=== PATIENT | male | born 1970 | race Caucasian/White ===

== ENCOUNTER 2019-08-24 09:41 | Inpatient (IN) | payer OTHER, MEDICAID, SELFPAY ==
[2019-08-24] VITALS (15 sets, daily range): BP systolic 121–153; BP diastolic 75–97; PULSE 78–95; RESP 14–21; TEMP 36.2–36.7; O2SAT 65–100
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
--- NOTE | ~2019-08-24 | US_ITS ---
EXAMINATION: US abdomen complete DATE: 08/26/2019 08:30 INDICATION: Abnormal liver function tests. TECHNIQUE: Multiple grayscale and Doppler ultrasound images of the abdomen were obtained. COMPARISON: CT 08/24/2019 FINDINGS: Abdominal aorta is normal in caliber. Inferior vena cava is normal. The visualized portions of the head and body of the pancreas are normal. There is diffuse hepatic steatosis. There is normal flow in main portal vein. The gallbladder is normal in size. No gallstones or gallbladder wall thick ening. There was no sonographic Terrell sign. The common duct is normal and measures 3 mm. The kidneys are normal in size. The spleen is normal in size. IMPRESSION: 1. Diffuse hepatic steatosis. Reviewed, dictated and finalized at location D. [facility]
--- NOTE | ~2019-08-24 | CT_ITS ---
EXAMINATION: CT chest abdomen pelvis w con DATE: 08/24/2019 12:51 INDICATION: Hemoptysis. Cough. Chest pain. Intermittent vomiting, constipation, diarrhea. Elevated li arabella enzymes. TECHNIQUE: Computed tomography (CT) of the chest, abdomen, and pelvis was performed with 100 cc Omnip aque 350 intravenous contrast. Automated exposure control and iterative reconstruction technique were employed. Exam dose: 670.10 mGy-cm total exam DLP. COMPARISON: 08/24/2019 2 view chest FINDINGS: CHEST CT: Normal heart size. No pericardial or pleural effusion. No hilar or mediastinal mass lesion or lymphad enopathy. No thoracic aortic aneurysm or dissection. Minimal dependent atelectasis of the lungs. No pulmonary infiltrate or consolidation or suspicious pu lmonary mass lesion. ABDOMEN/PELVIS CT: There is diffuse hepatic steatosis. No hepatic, splenic, pancreatic, and adrenal or renal space-occup romy mass lesion is detected. Normal caliber of the abdominal aorta. No intraperitoneal or retroperit edwards or pelvic mass lesion or adenopathy or ascites. No urinary tract calculus or hydroureteronephro sis. Mild prostate enlargement and calcification. The urinary bladder is distended but otherwise unre markable. There are occasional colonic diverticula; no CT evidence of diverticulitis. Normal appendix. Mild degenerative changes of the thoracic and lumbar spine, including moderate degenerative disease a t L4-5 and particular. IMPRESSION: Hepatic steatosis Mild colonic diverticulosis Reviewed, dictated and finalized at Location A. Reviewed, dictated and finalized at location A. [employer]
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
--- NOTE | 2019-08-24 10:10 | ECG_ITS ---
Measurements Intervals [place] Rate: 95 P: 21 NM: 157 QRS: 3 QRSD: 86 T: 30 QT: 341 QTc: 429 Interpretive Statements SINUS RHYTHM BASELINE ARTIFACT- I, II, AVR, AVL, AVF BORDERLINE ECG Electronically Signed On 08-24-2019 10:23:20 PRACTICE ARCHITECT by Venu Sow D.O.
[2019-08-24 10:32] LABS: Basophils Absolute Auto 0.1 K/mm3 (0.0-0.1); Eosinophils Absolute Auto 0.2 K/mm3 (0-0.3); Hematocrit 43.2 % (42.0-52.0); Immature Granulocyte Absolute 0.03 K/mm3 (0.00-0.031); Immature Granulocyte Percent A 0.5 % (0-0.5); Lymphocytes Absolute Auto 1.33 K/mm3 (0.9-3.2); Lymphocytes Percent Auto 22.1 % (18.3-44.2); Mean Corpuscular HGB Conc 34.7 g/dl (32-36); Mean Corpuscular Hemoglobin 31.5 pg (26-34); Mean Corpuscular Volume 90.8 fl (80-100); Mean Platelet Volume 10.6 fl (7.4-10.4); Monocytes Absolute Auto 0.7 K/mm3 (0.1-0.6); Monocytes Percent Auto 11.3 % (2.6-8.5); Neutrophils Absolute Auto 3.8 K/mm3 (1.3-6.7); Neutrophils Percent Auto 62.1 % (45.5-73.1); Platelet Count Result 297 k/mm3 (150-375); Red Blood Count 4.76 M/mm3 (4.6-6.20)
[2019-08-24 10:42] LABS: Albumin Level 4.5 g/dL (3.5-5.1); Alkaline Phosphatase 78 U/L (38-126); Bilirubin,Total 0.3 mg/dL (0.2-1.3); Blood Urea Nitrogen 13 mg/dL (9-20); Calcium 9.2 mg/dL (8.4-10.2); Carbon Dioxide 23 mmol/L (22-30); Chloride 101 mmol/L (98-107); Estimated Glomerular Filt Rate > 60; Glucose 78 mg/dL (75-110); Potassium 4.4 mmol/L (3.4-5.0); Sodium 136 mmol/L (137-145)
[2019-08-24 10:45] LABS: NT Pro B Type Natriuretic Pept 29 PG/ML (5-100)
[2019-08-24 10:54] LABS: Alveolar/Arterial O2 Gradient 31.8 mmHg; Base Excess ABG -2.1 mEq/l (+/-2.0); Fractional Inspired Oxygen 21 %; HCO3 ABG 21.1 mEq/l (22.0-26.0); Oxygen Content ABG 20.1 %vol (16.0-22.0); Oxygen Saturation ABG 96.2 % (95.0-100.0); PO2 ABG 79.6 mmHg (80.0-100.0); PO2 FiO2 Ratio Arterial Blood 3.79 %; Total Hemoglobin 15.5 g/dL (12.0-18.0); pH ABG 7.436 (7.350-7.450)
[2019-08-24 10:55] LABS: Alanine Aminotransferase 1024 U/L (4-50); Aspartate Amino Transferase 769 U/L (17-59)
[2019-08-24 10:55] LABS: Device ROOM AIR; Site Drawn RIGHT BRACHIAL
[2019-08-24 12:36] LABS: Lipase 118 U/L (23-300)
[2019-08-24 14:23] LABS: Hepatitis B Surface Antigen Negative (Negative)
[2019-08-24 14:29] LABS: HAV RESULT Negative (Negative); Hepatitis B Core IgM Result Negative (Negative)
[2019-08-24 14:45] LABS: Hepatitis C Virus Antibody Reactive (Negative)
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
[2019-08-24] MEDS: ALPRAZOLAM 0.25 MG TABLET 0.5 MG PO (16:51)
[2019-08-24] MEDS: LACTATED RINGERS 1,000 ML 125 ML IV CONT (17:47)
--- NOTE | 2019-08-24 18:10 | PC.NURSE ---
Patient arrived from ER @1700
[2019-08-24 20:16] LABS: INR 0.9; Prothrombin Time 11.6 Seconds (11.1-14.7)
[2019-08-24 20:17] LABS: Partial Thromboplastin Time 21.8 SECONDS (22.3-36.8)
[2019-08-24 20:18] LABS: Acetaminophen < 10 ug/mL (10-30)
[2019-08-24] MEDS: LORATADINE 10 MG TABLET PO (21:11)
[2019-08-25] MEDS: ALPRAZOLAM 0.5 MG TABLET PO ×4 (00:12→21:48)
[2019-08-25] MEDS: LACTATED RINGERS 1,000 ML 80 ML IV CONT ×2 (04:33→17:01)
[2019-08-25 06:00] VITALS: BP 128/82; PULSE 89; RESP 18; TEMP 36.5; O2SAT 98
[2019-08-25 06:27] LABS: Basophils Absolute Auto 0.1 K/mm3 (0.0-0.1); Eosinophils Absolute Auto 0.4 K/mm3 (0-0.3); Eosinophils Percent Auto 6.8 % (0-4.4); Hematocrit 41.9 % (42.0-52.0); Hemoglobin 14.3 g/dL (14.0-18.0); Immature Granulocyte Absolute 0.02 K/mm3 (0.00-0.031); Immature Granulocyte Percent A 0.4 % (0-0.5); Lymphocytes Percent Auto 23.3 % (18.3-44.2); Mean Corpuscular HGB Conc 34.1 g/dl (32-36); Mean Corpuscular Hemoglobin 31.4 pg (26-34); Mean Corpuscular Volume 91.9 fl (80-100); Mean Platelet Volume 10.6 fl (7.4-10.4); Monocytes Absolute Auto 0.6 K/mm3 (0.1-0.6); Monocytes Percent Auto 11.2 % (2.6-8.5); Neutrophils Percent Auto 57.3 % (45.5-73.1); Platelet Count Result 257 k/mm3 (150-375); Red Blood Count 4.56 M/mm3 (4.6-6.20); Red Cell Distribution Width 12.2 % (11.5-14.5); White Blood Count 5.2 K/mm3 (4.5-10.0)
[2019-08-25 06:53] LABS: Alkaline Phosphatase 69 U/L (38-126); Aspartate Amino Transferase 536 U/L (17-59); Bilirubin,Total 0.2 mg/dL (0.2-1.3); Blood Urea Nitrogen 12 mg/dL (9-20); Carbon Dioxide 29 mmol/L (22-30); Chloride 101 mmol/L (98-107); Estimated Glomerular Filt Rate > 60; Glucose 97 mg/dL (75-110); Magnesium 1.9 mg/dL (1.6-2.3); Phosphorus 3.3 mg/dL (2.5-4.5); Potassium 4.3 mmol/L (3.4-5.0); Sodium 136 mmol/L (137-145)
[2019-08-25 07:03] LABS: Alanine Aminotransferase 818 U/L (4-50)
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
[2019-08-25 14:00] VITALS: BP 138/94; PULSE 99; RESP 16; TEMP 36.2; O2SAT 98
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
[2019-08-25 16:38] LABS: Albumin Level 4.1 g/dL (3.5-5.1); Alkaline Phosphatase 77 U/L (38-126); Aspartate Amino Transferase 665 U/L (17-59); Bilirubin,Total 0.2 mg/dL (0.2-1.3); Blood Urea Nitrogen 13 mg/dL (9-20); Calcium 9.4 mg/dL (8.4-10.2); Carbon Dioxide 24 mmol/L (22-30); Chloride 98 mmol/L (98-107); Estimated Glomerular Filt Rate > 60; Glucose 115 mg/dL (75-110); Sodium 133 mmol/L (137-145)
[2019-08-25 17:39] LABS: Alanine Aminotransferase 902 U/L (4-50)
[2019-08-25 22:00] VITALS: BP 146/90; PULSE 110; RESP 18; TEMP 36.6; O2SAT 98
[2019-08-26] MEDS: ALPRAZOLAM 0.5 MG TABLET PO ×3 (05:25→21:54)
[2019-08-26] MEDS: LACTATED RINGERS 1,000 ML 80 ML IV CONT (05:25)
[2019-08-26 05:50] VITALS: BP 156/120; PULSE 94; RESP 18; TEMP 36.7; O2SAT 100
--- NOTE | 2019-08-26 08:05 | P.PNGI_ITS ---
Progress Note: A&P Additional Plan Patient comfortable this morning. Cough has improved. Less congested. He denies abdominal pain. On physical exam he is anicteric. Vital signs stable. Abdomen is soft nontender with no organomegaly. LFTs remain elevated but are decreasing. Hepatitis C screen is positive. Impression chronic hepatitis C infection suspected. Additional lab testing for viral load and hepatitis C genotype are pending. Plan is for follow-up in the office. Arrangements for treatment for hepatitis C can be arranged as an outpatient. Case discussed with Dr. Fox on the yesterday Subjective Date/time seen: 08/26/19 08:05 Objective Data Vital Signs Vital Signs: Vital Signs - 24 hr 08/25/19 14:00 08/25/19 22:00 08/26/19 05:50 Temperature 36.2 C L 36.6 C 36.7 C Pulse Rate 99 110 H 94 Respiratory Rate 16 18 18 Blood Pressure 138/94 H 146/90 H 156/120 H Pulse Oximetry 98 98 100 Intake/Output Intake/Output: Intake & Output 08/23/19 08/24/19 08/25/19 08/26/19 23:59 23:59 23:59 23:59 Intake Total 4260 1500 Output Total 1200 Balance -1200 4260 1500 Meds/Results Medications: Active Medications Generic Name Dose Route Start Last Admin Trade Name Freq PRN Reason Stop Dose Admin Alprazolam 0.5 mg 08/25/19 06:00 08/26/19 05:25 Xanax PO 0.5 mg 0600,1400,2200 MARLENY Administration Guaifenesin 600 mg 08/24/19 21:00 08/25/19 21:48 Mucinex 12 Hr Tab PO 600 mg Q12HR MARLENY Administration Lactated Ringer's 1,000 mls @ 80 mls/hr 08/24/19 15:00 08/26/19 05:25 Lr - Lactated Ringers Iv IV CONT 80 mls/hr .[id number] MARLENY Administration Nicotine 1 patch 08/24/19 20:50 08/25/19 09:27 Nicoderm Cq 21 Mg TRANSDERM 1 patch QAM MARLENY Administration Sodium Chloride 1 spray 08/24/19 19:43 [place] Nasal [place] NASAL Q6HR PRN Congestion Tramadol HCl 25 mg 08/25/19 13:28 08/25/19 23:13 Ultram PO 25 mg Q6H PRN Administration Pain Rated 4-6 Radiology Results: ITS Impressions Chest X-Ray 08/24/19 11:19 IMPRESSION: No active cardiopulmonary disease Chest/Abdomen/Pelvis CT 08/24/19 13:13 IMPRESSION: Hepatic steatosis Mild colonic diverticulosis Labs Labs: Laboratory Results - last 24 hr 08/24/19 08/25/19 12:25 15:40 Sodium 133 L Potassium 4.0 Chloride 98 Carbon Dioxide 24 BUN 13 Creatinine 0.70 Estim Creat Clear Calc Not Reportable Estimated GFR > 60 Glucose 115 H Calcium 9.4 Total Bilirubin 0.2 AST 665 H ALT 902 H Alkaline Phosphatase 77 Total Protein 8.0 Albumin 4.1 HCV RNA (PCR) IUs/ml Cancelled HCV RNA PCR log IUs/ml Cancelled
[2019-08-26 14:00] VITALS: BP 150/100; PULSE 97; RESP 16; TEMP 36.8; O2SAT 98
[2019-08-26 15:40] VITALS: PULSE 97
[2019-08-26] MEDS: METOPROLOL TARTRATE 25 MG TABLET PO ×2 (15:40→21:54)
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
[2019-08-26 21:54] VITALS: PULSE 90
[2019-08-26 22:00] VITALS: BP 142/98; PULSE 90; RESP 16; TEMP 36.5; O2SAT 98
[2019-08-27 01:12] VITALS: BP 130/90
[2019-08-27] MEDS: ALPRAZOLAM 0.5 MG TABLET PO (05:56)
[2019-08-27 06:00] VITALS: BP 122/94; PULSE 93; RESP 16; TEMP 36.4; O2SAT 98
[2019-08-27 10:15] VITALS: PULSE 93
[2019-08-27] MEDS: METOPROLOL TARTRATE 25 MG TABLET PO (10:15)
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
[2019-08-28 13:20] LABS: HCV Genotype, LiPA 3
== END 2019-08-27 13:35 | disposition home or self-care (01) ==
LOC: ANHED 10:35 → ANH3MEDSUR 15:53
PROVIDERS: Internal Medicine Gastroenterology; Physician Assistant; Admitting Provider Family Medicine; Emergency Provider Emergency Medicine; PCP Family Medicine; Visit Provider Family Medicine
DX: B18.2 Chronic viral hepatitis C (principal); R74.0 Nonspecific elevation of levels of transaminase and lactic acid dehydrogenase [LDH]; I10 Essential (primary) hypertension; F17.210 Nicotine dependence, cigarettes, uncomplicated; J32.9 Chronic sinusitis, unspecified; T46.4X5A Adverse effect of angiotensin-converting-enzyme inhibitors, initial encounter; Z72.89 Other problems related to lifestyle
CPT/HCPCS: 36415; 36600; 71046; 71260; 74177; 76700; 80053; 80307; 82805; 83690; 83735; 83880; 84100; 85025; 85380; 85610; 85730; 87522; 87804; 93005; 96365; 96366; 99285; A9270; G0378; G0379; J7120; Q9967

== ENCOUNTER 2020-04-26 07:49 | Outpatient (CLI) | payer OTHER, SELFPAY ==
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
== END 2020-04-26 07:50 | disposition home or self-care (01) ==
LOC: ANHCSM 07:54
PROVIDERS: PCP Family Medicine; Visit Provider Family Medicine
DX: G47.30 Sleep apnea, unspecified (principal)
CPT/HCPCS: 95806

== ENCOUNTER 2020-06-15 08:05 | Outpatient (CLI) | payer OTHER, SELFPAY | END 2020-06-15 08:06 | disposition home or self-care (01) | LOC: ANHAUDIO 08:06 | PROVIDERS: PCP Family Medicine; Visit Provider Family Medicine | DX: H90.3 Sensorineural hearing loss, bilateral (principal) | CPT/HCPCS: 92557; 92567 ==